=== PATIENT | female | born 1965 | race Two or more races ===

== ENCOUNTER → 2018-02-21 | Day surgery (SDC) | payer OTHER ==
[~2018-02-21] MED LIST: ACID REDUCER20 M1; ALREX5 ML; ATENOLOL50 MG; BUPROPION XL150 MG; CLONAZEPAM1 M1; FLEXERIL PO; LEVSIN0.125 MG; LYRICA PO; LYRICA100 MG; PRISTIQ ER50 MG; SIMETHICONE180 MG; SYNTHROID50 MCG
== END | disposition home or self-care (01) ==
LOC: ADM 02-13 10:15 → CIR.AMB 06:58
DX: N81.6 Rectocele (principal); R15.9 Full incontinence of feces

== ENCOUNTER → 2018-07-27 | Day surgery (SDC) | payer OTHER | END | disposition home or self-care (01) | LOC: ADM 07-20 11:00 → AMB-ENDOS 06:22 | DX: D13.1 Benign neoplasm of stomach (principal); K64.1 Second degree hemorrhoids ==

== ENCOUNTER 2020-10-16 07:26 | Day surgery (SDC) | payer OTHER | END 2020-10-16 14:50 | disposition home or self-care (01) | LOC: AMB-ENDOS 07:26 | PROVIDERS: ATTEND Colon & Rectal Surgery | DX: K29.60 Other gastritis without bleeding (principal); K63.5 Polyp of colon; Z20.822 Contact with and (suspected) exposure to COVID-19 ==